=== PATIENT | female | born 1980 | race Caucasian/White ===

== ENCOUNTER 2016-09-27 08:05 | Emergency (ER) | payer OTHER ==
[~2016-09-27] VITALS: Wt 58.0 kg
[~2016-09-27 08:05] MED LIST: LEVOTHYROXINE; MVI
[2016-09-27] MEDS ORDERED: DICLOFENAC SODIUM 37.5 MG/ML VIAL IV STA (08:29)
[2016-09-27] MEDS ORDERED: ONDANSETRON 4 MG INJ IV STA (08:29)
[2016-09-27 09:27] LABS: ADD UMIC NO; URINE BILIRUBIN (Dip) NEGATIVE (NEGATIVE); URINE BLOOD (Dip) NEGATIVE (NEGATIVE); URINE COLOR LT. YELLOW (YELLOW); URINE GLUCOSE (Dip) NEGATIVE (NEGATIVE); URINE KETONES (Dip) NEGATIVE (NEGATIVE); URINE LEUKOCYTE ESTERASE (Dip) NEGATIVE (NEGATIVE); URINE NITRITE (Dip) NEGATIVE (NEGATIVE); URINE TOTAL PROTEIN (Dip) NEGATIVE (NEGATIVE); URINE UROBILINOGEN (Dip) 1.0 E.U./dL (0.1-1.0)
[2016-09-27 09:30] LABS: BASOPHILS % 0.4 % (0.0-2.0); EOSINOPHILS # 0.3 10^3/ul (0.0-0.5); EOSINOPHILS % 4.3 % (0.0-7.0); HEMATOCRIT 41.8 % (37.0-47.0); HEMOGLOBIN 14.4 g/dl (12.0-16.0); LYMPHOCYTES # 2.4 10^3/ul (0.8-2.9); LYMPHOCYTES % 32.6 % (15.0-51.0); MEAN CORPUSCULAR HEMOGLOBIN 29.3 pg (29.0-33.0); MEAN CORPUSCULAR HGB CONC 34.5 g/dl (32.0-37.0); MEAN CORPUSCULAR VOLUME 84.8 fl (82.0-101.0); MEAN PLATELET VOLUME 7.3 fl (7.4-10.4); MONOCYTE # 0.3 10^3/ul (0.3-0.9); MONOCYTES % 4.6 % (0.0-11.0); NEUTROPHIL # 4.3 10^3/ul (1.6-7.5); NEUTROPHILS % 58.1 % (39.0-77.0); PLATELET COUNT 292 10^3/UL (140-440); RED BLOOD COUNT 4.93 10^6/ul (4.20-5.40); RED CELL DISTRIBUTION WIDTH 13.7 % (11.5-14.5); UNCORRECTED WBC 7.3 10^3/ul (4.8-10.8); WHITE BLOOD COUNT 7.3 10^3/ul (4.8-10.8)
[2016-09-27 09:35] LABS: CONDITION 1
[2016-09-27 09:36] LABS: ALBUMIN 4.4 g/dl (3.3-4.9)
[2016-09-27 09:39] LABS: BILIRUBIN,INDIRECT 0.8 mg/dl (0-1.1); BILIRUBIN,TOTAL 0.8 mg/dl (0.2-1.3); CREATININE 0.56 mg/dl (0.44-1.00)
[2016-09-27 09:40] LABS: ALBUMIN/GLOBULIN RATIO 1.07; CALCIUM 9.2 mg/dl (8.4-10.2); TOTAL PROTEIN 8.5 g/dl (6.1-8.1)
--- NOTE | 2016-09-27 10:14 | RADRPT ---
PROCEDURE: CT abdomen and pelvis without IV contrast CLINICAL INDICATION: Right flank pain TECHNIQUE: Axial images were obtained through the abdomen and pelvis without IV contrast. Coronal and sagittal reconstructions were obtained. Automated exposure control was utilized. DLP = 405.9 m Gy-cm. CTDiol= 7.8 mGy. COMPARISON: CT December 26, 2014 FINDINGS: The visualized lower lungs are clear. Heart size is within normal limits. The liver has an unremarkable noncontrast appearance. Cholecystectomy clips are seen in the gallbla dder fossa. The pancreas, spleen and adrenals are unremarkable. The kidneys demonstrate a normal appearance. No obstructive uropathy is observed. The bladder is fi lled with a minimal amount of urine. The uterus is atrophic versus previously removed. Air and stool are seen scattered within the colon. The appendix is normal. No dilated loops of sm all bowel are observed. The stomach and duodenum are unremarkable. No intra-abdominal or pelvic free fluid or fluid collections are observed. No intra-abdominal or pe lvic lymphadenopathy is observed. The arterial vasculature demonstrates a normal appearance. Osseous structures are intact. Small bone island is identified in the right femoral head. Subcutan eous and muscular soft tissues surrounding the abdomen and pelvis are unremarkable. IMPRESSION: Limited evaluation for intra-abdominal inflammatory processes without IV contrast. If there is clin ical concern for a intra-abdominal inflammatory process repeat exam with IV contrast is recommended. Status post cholecystectomy. No visualized acute intra-abdominal process. RPTAT: AA .Javi Ness MD, MD Date Time Electronically viewed and signed by .Javi Ness MD, MD on 09/27/2016 10:14 .P/
[2016-09-27] MEDS ORDERED: DICY20TA59 PO (10:34)
--- NOTE | 2016-09-27 10:36 | ERD ---
ER Documentation Chief Complaint Date/Time DATE: 09/27/16 TIME: 10:34 Chief Complaint lower abd pain for the past week. no dysuria or bowel problems. nausea HPI This is a 36-year-old female complains of pain in the right lower quadrant for 3 years. She says that after she eats food she gets a crampy pain in the right lower quadrant and suprapubic region. This is occurs within 15 minutes of eating but does not have any nausea vomiting diarrhea. The pain is usually worse after eating vegetables. She does feel bloated and gassy as well. No melena or fever or back pain no hematuria or dysuria. ROS All systems reviewed and are negative except as per history of present illness. Medications Home Meds Active Scripts Dicyclomine Hcl* (Bentyl*) 20 Mg Tablet, 20 MG PO QID for PAIN, #20 TAB Prov:JACKSON CORONADO DO 09/27/16 Reported Medications [Mvi] No Conflict Check 06/26/11 [Levothyroxine] No Conflict Check 06/26/11 Allergies Allergies: Coded Allergies: Amoxicillin (Verified Allergy, 06/26/11) PMhx/Soc History of Surgery: Yes ([facility]) Anesthesia Reaction: No Hx Neurological Disorder: No Hx Respiratory Disorders: No Hx Cardiac Disorders: No Hx Psychiatric Problems: No Hx Miscellaneous Medical Probl: Yes (thyroid) Hx Alcohol Use: No Hx Substance Use: No Hx Tobacco Use: No FmHx Family History: No coronary disease Physical Exam Vitals Vital Signs Date Time Temp Pulse Resp B/P Pulse Ox O2 Delivery O2 Flow Rate FiO2 09/27/16 08:07 98.5 78 20 123/78 100 Physical Exam Const: Well-developed, well-nourished Head: Atraumatic, normocephalic Eyes: Normal Conjunctiva, PERRLA, EOMI, normal sclera, no nystagmus ENT: Normal External Ears, Nose and Mouth, moist mucus membranes. Neck: Full range of motion. No meningismus, no lymphadenopathy. Resp: Clear to auscultation bilaterally, no wheezing, rhonchi, rales Cardio: Regular rate and rhythm, no murmurs, S1 S2 present Abd: Soft, mild right lower and suprapubic tenderness, non distended. Normal bowel sounds, no guarding or rebound, no pulsitile abdominal masses or bruits Skin: No petechiae or rashes, no ecchymosis , no maculopapular rash Back: No midline or flank tenderness Ext: No cyanosis, or edema, FROM x 4, normal inspection, neurovascularly intact x 4 Neur: Awake and alert, STR 5/5 x 4, sensation intact x 4, no focal findings, cerebellum intact Psych: Normal Mood and Affect Result Diagram: 09/27/1691209/27/16 0913 Results 24 hrs Laboratory Tests Test 09/27/16 09:13 Alanine Aminotransferase (ALT/SGPT) 56IU/L Albumin 4.4g/dl Albumin/Globulin Ratio 1.07 Alkaline Phosphatase 74IU/L Anion Gap 18 Aspartate Amino Transf (AST/SGOT) 37IU/L Basophils # 0.010^3/ul Basophils % 0.4% Blood Morphology Comment Blood Urea Nitrogen 10mg/dl Calcium Level 9.2mg/dl Carbon Dioxide Level 27mmol/L Chloride Level 103mmol/L Creatinine 0.56mg/dl Direct Bilirubin 0.00mg/dl Eosinophils # 0.310^3/ul Eosinophils % 4.3% Globulin 4.10g/dl Glucose Level 95mg/dl Hematocrit 41.8% Hemoglobin 14.4g/dl Indirect Bilirubin 0.8mg/dl Lymphocytes # 2.410^3/ul Lymphocytes % 32.6% Mean Corpuscular Hemoglobin 29.3pg Mean Corpuscular Hemoglobin Concent 34.5g/dl Mean Corpuscular Volume 84.8fl Mean Platelet Volume 7.3fl Monocytes # 0.310^3/ul Monocytes % 4.6% Neutrophils # 4.310^3/ul Neutrophils % 58.1% Nucleated Red Blood Cells # 0.010^3/ul Nucleated Red Blood Cells % 0.0/100WBC Platelet Count 80858^3/UL Potassium Level 4.0mmol/L Red Blood Count 4.9310^6/ul Red Cell Distribution Width 13.7% Sodium Level 144mmol/L Total Bilirubin 0.8mg/dl Total Protein 8.5g/dl Urine Bilirubin NEGATIVE Urine Clarity CLEAR Urine Color LT. YELLOW Urine Glucose NEGATIVE% Urine Hemoglobin NEGATIVE Urine Ketones NEGATIVE Urine Leukocyte Esterase NEGATIVE Urine Nitrite NEGATIVE Urine Specific [place] 1.015 Urine Total Protein NEGATIVE Urine Urobilinogen 1.0 E.U./dL Urine pH 8.5 White Blood Count 7.310^3/ul Current Medications Medications (Trade) Dose Ordered Sig/Vitor Route PRN Reason Start Time Stop Time Status Last Admin Dose Admin Ondansetron HCl (Zofran Inj) 4 mg ONCE STAT IV 09/27/16 08:29 09/27/16 08:30 DC 09/27/16 09:18 Diclofenac Sodium (Dyloject) 37.5 mg ONCE STAT IV 09/27/16 08:29 09/27/16 08:30 DC 09/27/16 09:18 Procedures/MDM PROCEDURE: CT abdomen and pelvis without IV contrast CLINICAL INDICATION: Right flank pain TECHNIQUE: Axial images were obtained through the abdomen and pelvis without IV contrast. Coronal and sagittal reconstructions were obtained. Automated exposure control was utilized. DLP = 405.9 mGy-cm. CTDiol= 7.8 mGy. COMPARISON: CT December 26, 2014 FINDINGS: The visualized lower lungs are clear. Heart size is within normal limits. The liver has an unremarkable noncontrast appearance. Cholecystectomy clips are seen in the gallbladder fossa. The pancreas, spleen and adrenals are unremarkable. The kidneys demonstrate a normal appearance. No obstructive uropathy is observed. The bladder is filled with a minimal amount of urine. The uterus is atrophic versus previously removed. Air and stool are seen scattered within the colon. The appendix is normal. No dilated loops of small bowel are observed. The stomach and duodenum are unremarkable. No intra-abdominal or pelvic free fluid or fluid collections are observed. No intra-abdominal or pelvic lymphadenopathy is observed. The arterial vasculature demonstrates a normal appearance. Osseous structures are intact. Small bone island is identified in the right femoral head. Subcutaneous and muscular soft tissues surrounding the abdomen and pelvis are unremarkable. IMPRESSION: Limited evaluation for intra-abdominal inflammatory processes without IV contrast. If there is clinical concern for a intra-abdominal inflammatory process repeat exam with IV contrast is recommended. Status post cholecystectomy. No visualized acute intra-abdominal process. RPTAT: AA .Javi Ness MD, Date Time Electronically viewed and signed by .Javi Ness MD, MD on 09/27/2016 10:14 .P/ CC: JACKSON CORONADO DO No acute pathology on CT scan or blood work. Discharge and follow-up PCP. Advised her to use some digestive enzymes [id number] we will give her Bentyl Departure Diagnosis: Primary Impression: Abdominal pain Abdominal location: right lower quadrant Qualified Code: R10.31 - Right lower quadrant abdominal pain Condition: Stable Patient Instructions: Abdominal Pain JACKSON CORONADO DO Sep 27, 2016 10:36
== END 2016-09-27 10:59 | disposition home or self-care (01) ==
LOC: FTE 08:05
DX: R10.31 Right lower quadrant pain (principal)
CPT/HCPCS: 36415; 74176; 80053; 81003; 85025; 96374; 96375; J2405; Z7502; Z7610